=== PATIENT | male | born 1945 | race Caucasian/White ===

== ENCOUNTER → 2016-06-23 | Outpatient (CLI) | payer OTHER ==
[~2016-06-23] MED LIST: ASPIR 8181 M1 PO; ATORVASTATIN CA40 MG PO; FISH OIL 1,001000 M2 PO; FLOMAX0.4 MG PO; GLUCOSAMINE HC500 MG PO; UNICOMPLEX M TA1 TA1 PO
--- NOTE | ~2016-06-23 | EKG ---
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 : 1945 Requested By: Ken Foy Order Number: [id number] MD: Loy Correa Measurements Intervals [place] Rate: 61 P: 35 MN: 186 QRS: -19 QRSD: 102 T: 32 QT: 395 QTc: 398 Interpretive Statements Sinus rhythm Probable left atrial enlargement Borderline left axis deviation Abnormal R-wave progression, late transition Baseline wander in lead(s) V3 No previous ECG available for comparison Electronically Signed On 06-25-2016 13:13:11 CDT by Loy Correa [email or web address] <ELECTRONICALLY SIGNED> By: Loy Correa MD 06/25/16 [id number] Loy Correa MD /MARICARMEN
== END | disposition home or self-care (01) ==
LOC: LITH 06:01
DX: N20.1 Calculus of ureter (principal); E78.00 Pure hypercholesterolemia, unspecified